=== PATIENT | male | born 1990 | race Two or more races ===

== ENCOUNTER 2017-03-12 07:01 | Day surgery (SDC) | payer OTHER ==
[2017-03-12] MEDS ORDERED: OXYMETAZOLINE HCL 0.05% NASAL SPRAY 15 ML BOTTLE ONE (07:28)
[2017-03-12] MEDS ORDERED: DEXAMETHASONE SOD PHOS INJ 10 MG/1 ML VIAL ONE (08:42)
[2017-03-12] MEDS ORDERED: ONDANSETRON HCL INJ/PF 4 MG/2 ML SDV ONE (08:42)
[2017-03-12] MEDS ORDERED: HYDROMORPHONE HCL INJ/PF 2 MG/ML AMPULE ONE (08:42)
[2017-03-12] MEDS ORDERED: MIDAZOLAM 2 MG/2 ML INJ ONE (08:42)
[2017-03-12] MEDS ORDERED: SUCCINYLCHOLINE CHLORIDE INJ 200 MG/10 ML VIAL ONE (08:43)
[2017-03-12] MEDS ORDERED: ACETAMINOPHEN 100 ML IV ONE (08:43)
[2017-03-12] MEDS ORDERED: PROPOFOL INJ 200 MG/20 ML VIAL IV ONE (08:43)
--- NOTE | 2017-03-12 10:08 | [facility]ARE OPERATIVE REPORT E ---
[facility] Operative Report NAME: DAVID FERREIRA AGE: 27Y DATE OF SURGERY: 03/12/2017 ROOM: PREOPERATIVE DIAGNOSIS: Chronic tonsillitis. POSTOPERATIVE DIAGNOSIS: Chronic tonsillitis. OPERATION: Tonsillectomy. SURGEON: DAVID HINES M.D. ANESTHESIA: MD. INDICATIONS: A 27-year-old male with a long history of chronic tonsillitis, chronic sore throats and tonsillith debris. Preop examination shows chronic tonsils - 2+ with tonsillith formation. He was taken to the operating room for tonsillectomy. Risks and benefits discussed and accepted preoperatively. OPERATIVE PROCEDURE: Under general anesthesia via orotracheal tube, patient was placed in the Patricia position. A time out procedure was performed. The oral cavity was examined. The right tonsil was seized at the superior pole and a coblation tonsillectomy performed. Minimal bleeding. Tonsil was removed and submitted to pathology. A similar procedure performed for the left tonsil. Bleeding controlled with bipolar cautery and suction cautery were required. The wound was irrigated with normal saline. Following this hemostasis obtained with the suction Bovie. The patient tolerated the procedure well. Total blood loss approximately 20 mL for the procedure. DICTATING PHYSICIAN: DAVID HINES M.D. [id number] PHY#: [id number] ID: [id number] JOB#: [id number] ACCT: [id number] cc:DAVID HINES M.D. >
== END 2017-03-12 10:47 | disposition home or self-care (01) ==
LOC: SC 07:01
PROVIDERS: ATTEND Otolaryngology
PROC: 0CTPXZZ Resection of Tonsils, External Approach (ICD-10-PCS; principal; 2017-03-12 08:15)
DX: J35.01 Chronic tonsillitis (principal); I51.9 Heart disease, unspecified
CPT/HCPCS: 88304 ×2; 42826; J2250; J1170; J0330; J2405; J2704; J1100; J0131; 170; J3490